=== PATIENT | female | born 1970 | race African-American/Black ===

== ENCOUNTER 2021-02-02 05:26 | Emergency (ER) | payer OTHER ==
[~2021-02-02] VITALS: Ht 167.6 cm; Wt 59.0 kg
--- NOTE | 2021-02-02 05:30 | NUR ---
PT BIBRA C/O BIZARRE BEHAVIOR. PER EMS, PT HAS NOT ANSWERED ANY QUESTIONS AND KEEPS MAKING GIBBERISH SOUNDS. PT ATTACHED TO MONITOR AND POX. MD AT BEDSIDE FOR EVAL. PT GIVEN BLANKET AND CALL LIGHT WITHIN REACH
--- NOTE | 2021-02-02 06:34 | NUR ---
URINE SENT [facility]
--- NOTE | 2021-02-02 06:34 | NUR ---
Antoinette cook in [facility] - 02/02/21 at 0652 by SHERRY URINE SENT WITHIN REACH
[2021-02-02 06:57] LABS: BASOPHILS # (AUTO) 0.1 K/uL (0.0-0.2); BASOPHILS % (AUTO) 0.5 % (0.0-2.0); EOSINOPHILS % (AUTO) 0.7 % (0.0-6.0); HEMATOCRIT 37 % (33-45); HEMOGLOBIN 12.5 g/dL (11.5-14.8); LYMPHOCYTES # (AUTO) 2.2 K/uL (0.8-4.8); LYMPHOCYTES % (AUTO) 18.3 % (20.0-44.0); MEAN CORPUSCULAR HGB CONC 34 g/dl (31.0-36.0); MEAN CORPUSCULAR VOLUME 91 fL (82-100); MONOCYTES # (AUTO) 1.2 K/uL (0.1-1.30); MONOCYTES % (AUTO) 9.9 % (2.0-12.0); NEUTROPHILS # (AUTO) 8.5 K/uL (1.8-8.9); NEUTROPHILS % (AUTO) 70.6 % (43.0-81.0); PLATELET COUNT (AUTO) 367 K/uL (150-450); RED BLOOD CELL COUNT(AUTO) 4.07 MIL/uL (4.0-5.2); WHITE BLOOD COUNT (AUTO) 12.1 K/uL (4.3-11.0)
[2021-02-02 06:59] LABS: BILIRUBIN,URINE SMALL (NEGATIVE); COLOR,URINE DARK YELLOW (YELLOW); LEUKOCYTE ESTERASE ,URINE NEGATIVE (NEGATIVE); NITRITE, URINE NEGATIVE (NEGATIVE); PH,URINE 5.5 (5.0-8.0); PROTEIN,URINE TRACE mg/dl (NEGATIVE); UGLUCOSE NEGATIVE (NEGATIVE); UROBILINOGEN,URINE 0.2 EU/dL (0.2)
[2021-02-02 07:02] LABS: CALCIUM, SERUM 8.7 mg/dL (8.5-10.1); CARBON DIOXIDE 26 mmol/L (21-32); CHLORIDE 102 mmol/L (98-107); CREATININE 0.8 mg/dL (0.6-1.3); GLUCOSE 122 mg/dL (74-106); POTASSIUM 3.6 mmol/L (3.5-5.1); SODIUM SERUM 138 mmol/L (136-145); UREA NITROGEN, BLOOD 16 mg/dL (7-18)
[2021-02-02 07:07] LABS: ALANINE AMINOTRANSFERASE 29 U/L (12-78); ALBUMIN 3.6 g/dL (3.4-5.0); ALKALINE PHOSPHATASE 73 U/L (46-116); ASPARTATE AMINOTRANSFERASE 34 U/L (15-37); BILIRUBIN,DIRECT 0.1 mg/dL (0.0-0.2); BILIRUBIN,TOTAL 0.7 mg/dL (0.2-1.0); TOTAL PROTEIN, SERUM 7.4 g/dL (6.4-8.2)
[2021-02-02 07:09] LABS: ACETAMINOPHEN 0 ug/ml (10-30); ALCOHOL, BLOOD < 3 mg/dL (0-0)
[2021-02-02 08:47] LABS: BACTERIA,URINE Rare /HPF (None Seen); RBC,URINE NONE SEEN /HPF (0-2); SQUAMOUS EPITHELIAL CELL,UR Few /HPF (None Seen); WBC,URINE NONE SEEN /HPF (0-3)
--- NOTE | 2021-02-02 10:15 | NUR ---
PT MORE AWAKE. STATES NAME IS JAYSHREE MEALS. REQUESTED FOR MEAL TRAY.
[2021-02-02] MEDS ORDERED: OLANZAPINE 10 MG VIAL IM ONE ×2 (13:30→13:38)
--- NOTE | 2021-02-02 19:05 | NUR ---
PT SLEEPING, ATTACHED TO MONITOR AND POX
--- NOTE | 2021-02-02 21:05 | NUR ---
Patient is resting comfortably in bed with eyes closed. Easily aroused. VSS
--- NOTE | 2021-02-02 23:05 | NUR ---
PT SLEEPING, BREATHING EVENLY AND UNLABORED, VSS
--- NOTE | 2021-02-03 01:51 | NUR ---
PT ATTACHED TO MONITOR AND POX. VSS
--- NOTE | 2021-02-03 05:29 | NUR ---
Patient discharged to home in stable condition. Written and verbal after care instructions given. Patient verbalizes understanding of instruction.
[2021-02-03 05:36] VITALS: BP 121/68
== END 2021-02-03 05:37 | disposition home or self-care (01) ==
LOC: ER 05:31
DX: F15.10 Other stimulant abuse, uncomplicated (principal)
CPT/HCPCS: 36415; 80048; 80076; 80143; 80307; 80320; 81001; 85025; 96372; 99285; J3490; G0480

== ENCOUNTER 2021-02-08 02:52 | Emergency (ER) | payer OTHER ==
--- NOTE | 2021-02-08 03:15 | NUR ---
CALLED FOR TRIAGE NOT IN WAITING ROOM.
--- NOTE | 2021-02-08 03:35 | NUR ---
CALLED IN TRIAGE NOT IN WAITING ROOM.
== END 2021-02-08 03:44 | disposition left against medical advice (07) ==
LOC: ER 02:53
DX: Z53.21 Procedure and treatment not carried out due to patient leaving prior to being seen by health care provider (principal)

== ENCOUNTER 2021-07-22 13:03 | Emergency (ER) | payer OTHER ==
[~2021-07-22] VITALS: Ht 170.2 cm; Wt 67.6 kg
--- NOTE | 2021-07-22 13:25 | NUR ---
BIB [facility] WALKING,C/O BACK PAIN SAYING SHE SLIPPED/FELL INSIDE A STORE
--- NOTE | 2021-07-22 16:20 | NUR ---
Patient discharged to home in stable condition. Written and verbal after care instructions given. Patient verbalizes understanding of instruction.
[2021-07-22 16:21] VITALS: BP 118/74
== END 2021-07-22 16:21 | disposition home or self-care (01) ==
LOC: ER 13:06
DX: M54.50 Low back pain, unspecified (principal); F17.200 Nicotine dependence, unspecified, uncomplicated; Z60.2 Problems related to living alone; W01.0XXA Fall on same level from slipping, tripping and stumbling without subsequent striking against object, initial encounter; Y93.89 Activity, other specified; Y92.89 Other specified places as the place of occurrence of the external cause; Y99.8 Other external cause status

== ENCOUNTER 2023-02-06 06:52 | Emergency (ER) | payer OTHER ==
[~2023-02-06] VITALS: Ht 170.2 cm; Wt 61.2 kg
[2023-02-06 09:05] LABS: BASOPHILS % (AUTO) 0.5 % (0.0-2.0); EOSINOPHILS # (AUTO) 0.2 K/uL (0.0-0.7); EOSINOPHILS % (AUTO) 2.5 % (0.0-6.0); HEMATOCRIT 37 % (33-45); HEMOGLOBIN 12.1 g/dL (11.5-14.8); LYMPHOCYTES # (AUTO) 1.6 K/uL (0.8-4.8); LYMPHOCYTES % (AUTO) 22.1 % (20.0-44.0); MEAN CORPUSCULAR HEMOGLOBIN 29 PG (26.0-33.0); MEAN CORPUSCULAR HGB CONC 33 g/dl (31.0-36.0); MEAN CORPUSCULAR VOLUME 87 fL (82-100); MONOCYTES # (AUTO) 0.8 K/uL (0.1-1.30); MONOCYTES % (AUTO) 10.5 % (2.0-12.0); NEUTROPHILS # (AUTO) 4.6 K/uL (1.8-8.9); NEUTROPHILS % (AUTO) 64.4 % (43.0-81.0); PLATELET COUNT (AUTO) 370 K/uL (150-450); RED BLOOD CELL COUNT(AUTO) 4.24 MIL/uL (4.0-5.2); RED CELL DISTRIBUTION WIDTH 13.3 % (11.5-15.0); WHITE BLOOD COUNT (AUTO) 7.2 K/uL (4.3-11.0)
[2023-02-06 09:07] LABS: APPEARANCE,URINE CLEAR (CLEAR); BILIRUBIN,URINE NEGATIVE (NEGATIVE); BLOOD, URINE NEGATIVE Ery/uL (NEGATIVE); COLOR,URINE YELLOW (YELLOW); KETONES,URINE NEGATIVE (NEGATIVE); LEUKOCYTE ESTERASE ,URINE 3+ (NEGATIVE); NITRITE, URINE NEGATIVE (NEGATIVE); PH,URINE 5.5 (5.0-8.0); PROTEIN,URINE NEGATIVE (NEGATIVE); UGLUCOSE NEGATIVE (NEGATIVE); UROBILINOGEN,URINE 0.2 EU/dL (0.2)
[2023-02-06 09:17] LABS: PREGNANCY TEST URINE QUAL NEGATIVE (NEGATIVE)
[2023-02-06 09:26] LABS: ALANINE AMINOTRANSFERASE 20 U/L (12-78); ALBUMIN 2.8 g/dL (3.4-5.0); ALCOHOL, BLOOD < 3 mg/dL (0-10); ALKALINE PHOSPHATASE 65 U/L (46-116); ASPARTATE AMINOTRANSFERASE 19 U/L (15-37); BILIRUBIN,TOTAL 0.2 mg/dL (0.2-1.0); CALCIUM, SERUM 8.7 mg/dL (8.5-10.1); CARBON DIOXIDE 26 mmol/L (21-32); CHLORIDE 101 mmol/L (98-107); CREATININE 0.5 mg/dL (0.6-1.3); GLUCOSE 94 mg/dL (74-106); POTASSIUM 3.6 mmol/L (3.5-5.1); SODIUM SERUM 133 mmol/L (136-145); TOTAL PROTEIN, SERUM 7.5 g/dL (6.4-8.2); UREA NITROGEN, BLOOD 8 mg/dL (7-18)
[2023-02-06 09:28] LABS: AMPHETAMINE, URINE NEGATIVE (NEGATIVE); BARBITURATE, URINE NEGATIVE (NEGATIVE); BENZODIAZEPINE, URINE NEGATIVE (NEGATIVE); CANNABINOID, URINE NEGATIVE (NEGATIVE); COCCAINE, URINE NEGATIVE (NEGATIVE); OPIATE, URINE NEGATIVE (NEGATIVE); PHENCYCLIDINE SCREEN,URINE NEGATIVE (NEGATIVE)
[2023-02-06 09:30] LABS: SALICYLATE 1.7 mg/dL (2.8-20.0)
[2023-02-06 09:32] LABS: ACETAMINOPHEN <10 ug/ml (10-30)
[2023-02-06 09:51] LABS: ADD URINE CULTURE YES; BACTERIA,URINE Few /HPF (None Seen); RBC,URINE 0-2 /HPF (0-2); WBC,URINE 21-50 /HPF (0-3)
[2023-02-06 09:52] LABS: SQUAMOUS EPITHELIAL CELL,UR Few /HPF (None Seen)
[2023-02-06] MEDS ORDERED: NITR100C6 PO (09:58)
[2023-02-06] MEDS ORDERED: NITROFURANTOIN/MONOHYDRATE MACROCRYSTALS 100 MG CAPSULE ONE (09:58)
[2023-02-06] MEDS ORDERED: NITROFURANTOIN/MONOHYDRATE MACROCRYSTALS 100 MG CAPSULE PO ONE (10:00)
[2023-02-06 14:07] VITALS: BP 110/71; TEMP 98.1; O2SAT 97
== END 2023-02-06 14:08 ==
LOC: ER 06:54
DX: R45.851 Suicidal ideations (principal); N39.0 Urinary tract infection, site not specified; F17.200 Nicotine dependence, unspecified, uncomplicated; Z60.2 Problems related to living alone; Z20.822 Contact with and (suspected) exposure to COVID-19
CPT/HCPCS: 99285; 85025; 80048; 87086; 80076; 84703; 81001; 36415; 87426; 80143; 80320; 80307; C9803; G0480